=== PATIENT | female | born 1940 | race African-American/Black ===

== ENCOUNTER 2020-08-09 16:00 | Inpatient (IN) | payer OTHER ==
--- NOTE | 2020-08-09 16:20 | PDOC ---
History of Present Illness - General Chief Complaint: Shortness of Breath Stated Complaint: SENT BY URGENT CARE Time Seen by Provider: 08/09/20 17:00 History Source: Patient, Family - History of Present Illness Initial Comments: 08/09/20 17:12 80 y.o. F PMHx sarcoidosis, HTN and stroke 4 years ago with residual memory deficits presenting due to SOB. Hx was taken from patient and daughter. Patient states she has been having increased difficulty breathing for the past 2 weeks along with a cough productive of green sputum. Patient walks with a cane and get SOB after a few steps. Patient uses home O2 2L and home albuterol inhaler 3x daily. Patient denies fever, chills, chest pain, headache, N/V/D. PCP: Specialist: Marisa Mcneill [phone] PMHx: sarcoidosis, HTN, Stroke Meds: In Chart Allergies: NKDA Is this a multiple visit Asthma Patient?: No Timing/Duration: constant Past History - Medical History Allergies/Adverse Reactions: Allergies Allergy/AdvReac Type Severity Reaction Status Date / Time No Known Allergies Allergy Verified 08/09/20 16:12 Home Medications: Ambulatory Orders Albuterol 0.083% Nebulizer Selma [Ventolin 0.083%] 1 neb NEB QID 08/09/20 Atorvastatin Ca [Lipitor] 10 mg PO HS 08/09/20 Cetirizine HCl [Allergy Relief] 10 mg PO DAILY 08/09/20 Cyproheptadine [Periactin -] 4 mg PO DAILY 08/09/20 Gabapentin 200 mg PO DAILY 08/09/20 Guaifenesin/Dextromethorphan [Mucinex Dm ER 1,200-60 mg Tab] 1 each PO DAILY 08/09/20 Lactulose 10 gm PO 08/09/20 Valsartan 40 mg PO DAILY 08/09/20 COPD: No HTN: Yes (borderline) - Psycho-Social/Smoking History Smoking History: Never smoked Have you smoked in the past 12 months: No - Substance Abuse Hx (Audit-C & DAST Scrn) How often the patient has a drink containing alcohol: Never Score: In Men: 4 or > Positive; In Women: 3 or > Positive: 0 Screen Result (Pos requires Nsg. Audit-10AR): Negative In the last yr the pt used illegal drug/Rx for NonMed reason: No Score: Yes response is considered Positive: 0 Screen Result (Positive result requires Nsg. DAST-10): Negative Review of Systems - Review of Systems Able to Perform ROS?: Yes Is the patient limited Polish proficient: No Constitutional: No: Chills, Fever HEENTM: No: Blurred Vision, Double Vision Respiratory: Yes: Cough, SOB with Exertion, SOB at Rest, Productive cough (Green sputum) ABD/GI: No: Abdominal Distended, Constipated, Diarrhea, Nausea, Vomiting : No: Burning, Dysuria Musculoskeletal: No: Muscle Pain, Muscle Weakness Integumentary: No: Bruising, Dryness Neurological: Yes: Numbness (feet), Paresthesia (feet). No: Headache Hematologic/Lymphatic: No: Easy Bleeding, Easy Bruising *Physical Exam - Vital Signs Last Vital Signs Temp Pulse Resp BP Pulse Ox 97.7 F 94 H 24 H 140/70 92 L 08/09/20 16:03 08/09/20 16:03 08/09/20 16:03 08/09/20 16:03 08/09/20 16:03 - Physical Exam General Appearance: Yes: Nourished, Appropriately Dressed. No: Apparent Distress Respiratory/Chest: positive: Labored Respiration, Rhonchi, Other (Coarse BS). negative: Chest Tender, Lungs Clear, Normal Breath Sounds, Respiratory Distress, Accessory Muscle Use, Crackles, Rales, Stridor, Wheezing Cardiovascular: positive: Regular Rhythm, Regular Rate. negative: Edema, JVD, Murmur Gastrointestinal/Abdominal: positive: Normal Bowel Sounds, Flat, Soft. negative: Tender, Organomegaly, Distended, Rebound, Tenderness Musculoskeletal: positive: Normal Inspection. negative: CVA Tenderness Integumentary: positive: Normal Color, Dry, Warm Neurologic: positive: Fully Oriented, Alert, Normal Mood/Affect, Normal Response ED Treatment Course - LABORATORY CBC & Chemistry Diagram: 08/09/20 17:00 08/09/20 17:00 Medical Decision Making - Medical Decision Making 08/09/20 17:21 80 y.o. F PMHx sarcoidosis, HTN and stroke 4 years ago with residual memory deficits presenting due to SOB. DDx: COPD exacerbation, pneumonia Labs: WBC 14.5 CXR: Pending read EKG: NSR, QTc 435, rate 90 - Given Duonebs, 10mg Decadron IV, 500 mg Azithromycin, 1g Rocephin, on 4L O2 Dispo: Admission to med-surg 08/09/20 19:46 Discharge - Discharge Information Problems reviewed: Yes Clinical Impression/Diagnosis: Shortness of breath at rest Condition: Fair - Admission Yes - Follow up/Referral Referrals: ON STAFF,NOT [Primary Care Provider] - - Patient Discharge Instructions - Post Discharge Activity
[2020-08-09] MEDS ORDERED: ALBUTEROL SO4 2.5/IPRATROPIUM 0.5 INH SOL 3 ML VIAL.NEB. NEB ONE ×2 (16:53→17:03)
[2020-08-09] MEDS ORDERED: DEXAMETHASONE SOD PHOSPHATE 10 MG/1 ML VIAL IVPUSH ONE (16:53)
[2020-08-09] MEDS ORDERED: DEXAMETHASONE SOD PHOSPHATE 10 MG/1 ML VIAL ONE (17:03)
[2020-08-09 17:56] LABS: BASO % 1.1 % (0-2.0); EOS % 9.6 % (0-4.5); HEMATOCRIT 41.7 % (32.4-45.2); HEMOGLOBIN 13.3 GM/dL (10.7-15.3); LYMPH % 23.2 % (8-40); MCH 26.2 pg (25.7-33.7); MCHC 31.9 g/dl (32.0-36.0); MEAN PLT VOLUME 8.4 fl (7.5-11.1); MONO % 9.5 % (3.8-10.2); NEUT % 56.6 % (42.8-82.8); PLATELET COUNT 355 K/MM3 (134-434); RBC 5.08 M/mm3 (3.60-5.2); RDW 13.9 % (11.6-15.6); WHITE BLOOD COUNT 14.5 K/mm3 (4.0-10.0)
[2020-08-09 18:05] LABS: INR 1.03 (0.83-1.09); PROTHROMBIN TIME (PATIENT) 12.1 SEC (9.7-13.0)
[2020-08-09] MEDS ORDERED: AZITHROMYCIN IVPB 500 MG in DEXTROSE 5%-WATER - 250 ML IVPB ONE (18:11)
[2020-08-09 18:33] LABS: ALK PHOS 107 U/L (45-117); ANION GAP 7 MMOL/L (8-16); BILIRUBIN,TOTAL 0.2 mg/dL (0.2-1); BLOOD UREA NITROGEN 9.8 mg/dL (7-18); CALCIUM 9.2 mg/dL (8.5-10.1); CHLORIDE 105 mmol/L (98-107); CO2 28 mmol/L (21-32); CREATININE 0.8 mg/dL (0.55-1.3); GLUCOSE,RANDOM 84 mg/dL (74-106); POTASSIUM 4.3 mmol/L (3.5-5.1); SGOT/AST 15 U/L (15-37); SGPT/ALT 17 U/L (13-61); SODIUM 140 mmol/L (136-145); TOT PROT 7.8 g/dl (6.4-8.2)
[2020-08-09 18:49] LABS: N-TERMINAL BNP 67.7 pg/ml (5-450)
--- NOTE | 2020-08-09 19:02 | PDOC ---
Documentation entered by Sabrina Lombardo SCRIBE, acting as scribe for Lori Bennett MD. Lori Bennett MD: This documentation has been prepared by the Munira higgins Brenda, SCRIBE, under my direction and personally reviewed by me in its entirety. I confirm that the documentation accurately reflects all work, treatment, procedures, and medical decision making performed by me. Attending Attestation - Resident Resident Name: Tristen Sheikh - ED Attending Attestation I have performed the following: I have examined & evaluated the patient, The case was reviewed & discussed with the resident, I agree w/resident's findings & plan, Exceptions are as noted - HPI HPI: 08/09/20 17:53 The patient is an 80 year old female with a significant PMH of sarcoidosis, HTN and stroke (4 yrs ago with residual memory deficits) who presents to the ED for evaluation of 2 days of worsening shortness of breath. She is also endorsing a cough prouctive of green sputum. History was obtained via daughter. Daughter and patient are extremely poor historians. Allergies: NKA 08/09/20 18:52 - Physicial Exam PE: 08/09/20 18:53 Agree with resident exam. Patient is alert and tachyphneic but not in distress, speaking in complete sentences. Pulm: + diffuse rhonchi. CV: rrr no m/r./g - Medical Decision Making 08/09/20 18:58 Pt presents to the ED complaining of worsening shortness of breath and cough productive of green sputum. history of sarcoid. Given her hypoxia and tachypnea, will admit to medicine for treatment of pneumonia. Discharge - Discharge Information Problems reviewed: Yes Clinical Impression/Diagnosis: Shortness of breath at rest Condition: Fair - Follow up/Referral - Patient Discharge Instructions - Post Discharge Activity
[2020-08-09] MEDS ORDERED: CEFTRIAXONE 1,000 MG in DEXTROSE 5%-WATER - 50 ML IVPB ONE (19:20)
--- NOTE | 2020-08-09 19:33 | HP ---
CHIEF COMPLAINT: shortness of breath and cough PCP: HISTORY OF PRESENT ILLNESS: Ms. Judd is an 80F w a pmhx of sarcoidosis, htn, and previous cva (4 years ago)brought into the ED by her daughter for a 2 day complaint of shortness of breath admitted for treatment of pneumonia. The patient is accompanied by her daughter. The patient was noted to have had increased shortness of breath and productive cough since Thursday. The patient notes she has had similar symptoms in the past. The patient explains she has not seen a physician for her sarcoidosis since DEC. She lives alone at home with her daughter visiting a few times a week and her daughter notes that the patient sometimes forgets to take her medications. The patient had a severe cough an yellow productive sputum at the time. The daughter notes the sputum has been getting darker in color. The patient denies chest pain, dyspnea, fever, chills, nausea, vomiting, change in bowel habits, or abdominal pain. Recent Travel: denies PAST MEDICAL HISTORY: as above PAST SURGICAL HISTORY: as above Social History: Smoking: denies Alcohol: denies Drugs: denies Allergies No Known Allergies Allergy (Verified 08/09/20 16:12) HOME MEDICATIONS: Home Medications Medication Instructions Recorded Albuterol 0.083% Nebulizer Selma 1 neb NEB QID 08/09/20 [Ventolin 0.083%] Atorvastatin Ca [Lipitor] 10 mg PO HS 08/09/20 Cetirizine HCl [Allergy Relief] 10 mg PO DAILY 08/09/20 Cyproheptadine [Periactin -] 4 mg PO DAILY 08/09/20 Gabapentin 200 mg PO DAILY 08/09/20 Guaifenesin/Dextromethorphan 1 each PO DAILY 08/09/20 [Mucinex Dm ER 1,200-60 mg Tab] Lactulose 10 gm PO 08/09/20 Valsartan 40 mg PO DAILY 08/09/20 REVIEW OF SYSTEMS CONSTITUTIONAL: Absent: fever, chills, diaphoresis, generalized weakness, malaise, loss of appetite, weight change HEENT: Absent: rhinorrhea, nasal congestion, throat pain, throat swelling, difficulty swallowing, mouth swelling, ear pain, eye pain, visual changes CARDIOVASCULAR: Absent: chest pain, syncope, palpitations, irregular heart rate, lightheadedness, peripheral edema RESPIRATORY: cough, shortness of breath, Absent: dyspnea with exertion, GASTROINTESTINAL: Absent: abdominal pain, abdominal distension, nausea, vomiting, diarrhea, constipation, melena, hematochezia GENITOURINARY: Absent: dysuria, frequency, urgency, hesitancy, hematuria, flank pain, genital pain PHYSICAL EXAMINATION Vital Signs - 24 hr 08/09/20 08/09/20 16:03 18:01 Temperature 97.7 F 97.9 F Pulse Rate 94 H Pulse Rate [ 101 H Apical] Respiratory 24 H 19 Rate Blood Pressure 140/70 Blood Pressure 138/72 [Right Arm] O2 Sat by Pulse 92 L 96 Oximetry (%) GENERAL: Awake, alert, and fully oriented, in no acute distress. HEAD: Normal with no signs of trauma. LUNGS: POOR INSPIRATORY EFFORT, COUGH, RALES HEARD BILATERAL BASES HEART: Regular rate and rhythm, normal S1 and S2 without murmur, rub or gallop. ABDOMEN: Soft, nontender, not distended, normoactive bowel sounds, no guarding, no rebound, no masses. No hepatomegaly or splenomegaly. LOWER EXTREMITIES: 2+ pulses, warm, well-perfused. No calf tenderness. No peripheral edema. Laboratory Results - last 24 hr 08/09/20 08/09/20 08/09/20 17:00 17:00 17:00 WBC 14.5 H RBC 5.08 Hgb 13.3 Hct 41.7 MCV 82.0 MCH 26.2 MCHC 31.9 L RDW 13.9 Plt Count 355 MPV 8.4 Absolute Neuts (auto) 8.2 H Neutrophils % 56.6 Lymphocytes % 23.2 Monocytes % 9.5 Eosinophils % 9.6 H Basophils % 1.1 Nucleated RBC % 0 PT with INR 12.10 INR 1.03 Sodium 140 Potassium 4.3 Chloride 105 Carbon Dioxide 28 Anion Gap 7 L BUN 9.8 Creatinine 0.8 Est GFR (CKD-EPI)AfAm 80.14 Est GFR (CKD-EPI)NonAf 69.14 Random Glucose 84 Calcium 9.2 Total Bilirubin 0.2 AST 15 ALT 17 Alkaline Phosphatase 107 Creatine Kinase 77 Troponin I < 0.02 B-Natriuretic Peptide 67.7 Total Protein 7.8 Albumin 3.0 L ASSESSMENT/PLAN: Ms. Judd is an 80F w a pmhx of sarcoidosis, htn, and previous cva (4 years ago)brought into the ED by her daughter for a 2 day complaint of shortness of breath admitted for treatment of pneumonia. #community acquired pneumonia - elevated WBC - azythromycin 500 PO Daily - ceftriaxone 1g daily - 2L nasal canula - sputum cultures - blood cultures - consult pulm - consult ID #sarcoidosis - continue home dose of prednisone - assess A1C for possible insulin resistance - pulm consult - Dr. Narvaez #HTN - Continue Home losartan - monitor BP #HLD - Home statin dose #FEN - Sodium controlled diet - monitor lytes #DVT ppx - lovenox sq #dispo - admit to medsurg - PT consult - social work will need to be consulted before discharge to evaluate home living situation #advanced directive - full code Family Medical History Family History: As Documented Visit type - Medication Review Med list reviewed for High Risk Meds patients 65 and older: Yes - Emergency Visit Emergency Visit: Yes ED Registration Date: 08/09/20 Care time: The patient presented to the Emergency Department on the above date and was hospitalized for further evaluation of their emergent condition. - New Patient This patient is new to me today: Yes Date on this admission: 08/10/20 - Critical Care Critical Care patient: No ATTENDING PHYSICIAN STATEMENT I saw and evaluated the patient. I reviewed the resident's note and discussed the case with the resident. I agree with the resident's findings and plan as documented. SUBJECTIVE: OBJECTIVE: ASSESSMENT AND PLAN:
[2020-08-09] MEDS ORDERED: CEFTRIAXONE 1 GM/50 ML BAG ONE (20:03)
--- NOTE | 2020-08-09 22:02 | PN ---
Teaching Attending Note Name of Resident: Augustine Oswald ATTENDING PHYSICIAN STATEMENT I saw and evaluated the patient. I reviewed the resident's note and discussed the case with the resident. I agree with the resident's findings and plan as documented. SUBJECTIVE: 80 y/o F with PMHx of HTN, CVA, Sarcoidosis p/w progressive worsening of dyspnea and change in sputum purulence admitted with CAP &Advanced Sarcoidosis. OBJECTIVE: VS: Afeb HR 101 BP 138/72 97% on 2L NC Leukocytosis 14.5 H/H WNL Na 140 k 4.3 BUN /Creat 9.8/0.8 ASSESSMENT AND PLAN: CAP Sarcoidosis Obtain Pulm records from o/p for any recent CT scans C/W Home oxygen 2L NC Ceftriaxone and azithromycin Albuterol q 4 PRN dyspnea COVID sent Received Decadron 10 mg IVP in ED Reconcile Prednisone 20 mg in am BCx, Sputum Cx Tylenol 650 mg q 6 hr PRN fever Guaifenesin PRN cough CVA HTN C/W ASA 81 mg daily C/W Valsartan 40 mg daily Supp care: DVT Px: HSQ 5K BID Diet resume GI px not indicated
[2020-08-09 22:23] VITALS: BMI 22.1
--- OUTSIDE RECORDS SUMMARY | 2020-08-10 04:36 | XMS ---
:1940 Demographics Address [id number] [place] [address] Preferred Language en Marital Status Unknown Buddhism Affiliation BA Race BL Ethnic Group Unknown Author Organization [facility] Support Name Relationship Address Phone RE Unavailable Unavailable Unavailable KOMAL DELACRUZ DAUGHTER [address] [place] [address] Re-disclosure Warning The records that you are about to access may contain information from federally- assisted alcohol or drug abuse programs. If such information is present, then the following federally mandated warning applies: This information has been disclosed to you from records protected by federal confidentiality rules (42 CFR part 2). The federal rules prohibit you from making any further disclosure of this information unless further disclosure is expressly permitted by the written consent of the person to whom it pertains or as otherwise permitted by 42 CFR part 2. A general authorization for the release of medical or other information is NOT sufficient for this purpose. The Federal rules restrict any use of the information to criminally investigate or prosecute any alcohol or drug abuse patient.The records that you are about to access may contain highly sensitive health information, the redisclosure of which is protected by Article 27-F of the [facility] Public Health law. If you continue you may haveaccess to information: Regarding HIV / AIDS; Provided by facilities licensed or operated by the [facility] Office of Mental Health; or Provided by the [facility] Office for People With Developmental Disabilities. If such information is present, then the following [facility] mandated warning applies: This information has been disclosed to you from confidential records which are protected by state law. State law prohibits you from making any further disclosure of this information without the specific written consent of the person to whom it pertains, or as otherwise permitted by law. Any unauthorized further disclosure in violation of state law may result in a fine or shelter sentence or both. A general authorization for the release of medical or other information is NOT sufficient authorization for further disclosure. Allergies and Adverse Reactions Type Description Substance Reaction Status Data Source(s ) No Known No Known Allergies No known eCW3 ( [place] Allergies allergies [facility] (situation) Care) Encounters Encounter Providers Location Date Indications Data Source(s ) New A31 [facility]-Initial [place] [facility] 12/28/2018 eC W3 ([facility] Assessment [facility] A28 12:00:00 AM [facility] EST - Care) 12/28/2018 12:00:00 AM EST Medications Medication Brand Start Product Dose Route Administrative Pharmacy [facility] Indications Reaction Description Data Name Date Form Instructions Instructions Source(s) Aspirin 81 Aspir- 1.0 active Aspir-81 8 1 eCW3 MG Delayed 81 81 {tabl MG ([place] Release MG et} [facility] Oral Tablet Health Aspir-81 81 Care) MG Guaifenesin Guaife 1.0 active Guaifenes in eCW3 400 MG Oral nesin {tabl 400 MG ([place]ud son Tablet 400 MG et_as [facility] _need Health ed} Care) Losartan Losart 1.0 active Losartan eCW 3 Potassium an {tabl Potassium 25 ( [place] 25 MG Oral Potass et} MG [facility] Tablet ium 25 Health MG Care) atorvastati Atorva 1.0 active Atorvasta tin eCW3 n 10 MG statin {tabl Calcium 10 (Hu dson Oral Tablet Calciu et} MG [facility] Atorvastati m 10 Health n Calcium MG Care) 10 MG Metformin METFOR 1.0 active METFORMIN e CW3 hydrochlori MIN {tabl HCL 500 MG ( [place] de 500 MG HCL et_wi [facility] Oral Tablet 500 MG th_a_ Healt h METFORMIN meal} Care) HCL 500 MG Insurance Providers Payer name Policy type Policy ID Covered Covered libertarian's Policy P ellen / Coverage libertarian ID relationship to [facility] ormation type [facility] [id number] MEDICARE Problems, Conditions, and Diagnoses Code Display Name Description Problem Type Effective Dates Data Source(s) F32.9 Mild depression Mild depression Problem 12/08/2018 eCW3 ([facility] 12:00:00 AM EST [facility] Care) F43.10 Post-traumatic Post-traumatic Problem 12/08/2018 eCW3 ( [place] stress disorder stress disorder, 12:00:00 AM [facility] unspecified Care) F41.1 Anxiety Anxiety Problem 12/08/2018 eCW3 ([place] 12:00:00 AM EST [facility] Care) Social History Code Duration Value Status Description Data Source(s ) Smoking 12/28/2018 12:00:00 Never Smoker completed Never Smoker e CW3 ([facility]) Never Smoker completed Never Smoker eCW3 ([facility])
[2020-08-10] MEDS: ALBUTEROL SO4 HFA INHALER IH PRN ×2 (05:54→22:21)
[2020-08-10 07:39] LABS: BASO % 0.1 % (0-2.0); HEMATOCRIT 37.8 % (32.4-45.2); HEMOGLOBIN 12.2 GM/dL (10.7-15.3); MCH 26.3 pg (25.7-33.7); MCHC 32.3 g/dl (32.0-36.0); MEAN CELL VOLUME 81.5 fl (80-96); MEAN PLT VOLUME 7.9 fl (7.5-11.1); MONO % 5.5 % (3.8-10.2); NEUT % 75.4 % (42.8-82.8); PLATELET COUNT 296 K/MM3 (134-434); RBC 4.64 M/mm3 (3.60-5.2)
[2020-08-10 08:07] LABS: ALBUMIN 2.6 g/dl (3.4-5.0); BILIRUBIN,TOTAL 0.3 mg/dL (0.2-1); BLOOD UREA NITROGEN 12.3 mg/dL (7-18); CALCIUM 8.8 mg/dL (8.5-10.1); CREATININE 0.7 mg/dL (0.55-1.3); MAGNESIUM 2.3 mg/dL (1.8-2.4); PHOSPHOROUS 4.3 mg/dL (2.5-4.9); POTASSIUM 4.3 mmol/L (3.5-5.1)
[2020-08-10] MEDS ORDERED: predniSONE 20 MG TABLET (UD) PO SCH (10:00)
[2020-08-10] MEDS ORDERED: AZITHROMYCIN IVPB 500 MG/250 ML BAG IVPB ONE (10:00)
[2020-08-10] MEDS ORDERED: PT OWN MED DRAWER 7, Y5N ONE ×3 (10:34→21:26)
[2020-08-10] MEDS ORDERED: cefTRIAXone SODIUM 1 GM VIAL ONE (10:35)
[2020-08-10] MEDS ORDERED: DEXTROSE 5%-WATER - 50 ML IVPB ONE (10:35)
--- NOTE | 2020-08-10 10:40 | EKG ---
Test Reason : Blood Pressure : / mmHG Vent. Rate : 090 BPM Atrial Rate : 090 BPM P-R Int : 132 ms QRS Dur : 078 ms QT Int : 356 ms P-R-T Axes : 066 049 066 degrees QTc Int : 435 ms POOR DATA QUALITY, INTERPRETATION MAY BE ADVERSELY AFFECTED NORMAL SINUS RHYTHM NORMAL ECG Confirmed by JANNETH GOMES MD ([id number]) on 08/10/2020 10:39:37 AM Referred By: Confirmed By:JANNETH GOMES MD
[2020-08-10] MEDS: AZITHROMYCIN IVPB 250 MG in DEXTROSE 5%-WATER - 250 ML IVPB SCH (10:41)
[2020-08-10] MEDS: ENOXAPARIN NA (PORCINE) 40 MG/0.4 ML DISP.SYRIN SQ SCH (10:42)
[2020-08-10] MEDS: VALSARTAN 40 MG TABLET PO SCH (10:42)
[2020-08-10] MEDS: GABAPENTIN 100 MG CAPSULE PO SCH (10:42)
[2020-08-10] MEDS: LORATADINE 10 MG TABLET PO SCH (10:42)
[2020-08-10] MEDS: ASPIRIN 81 MG CHEWABLE TABLETS PO SCH (10:42)
[2020-08-10] MEDS: CEFTRIAXONE 1 GM in DEXTROSE 5%-WATER - 50 ML IVPB SCH (10:43)
[2020-08-10] MEDS ORDERED: POLYETHYLENE GLYCOL 3350 119 GM BTL PO SCH (10:45)
[2020-08-10] MEDS: LACTULOSE 20 GM/30 ML UDC (FOR ORAL USE ONLY) PO SCH (11:48)
[2020-08-10] MEDS: predniSONE 20 MG TABLET (UD) PO SCH (11:48)
[2020-08-10] MEDS: MEMANTINE HCL 10 MG TABLET (FP) PO SCH (11:48)
--- NOTE | 2020-08-10 12:54 | PN ---
Teaching Attending Note Name of Resident: Robert Patel ATTENDING PHYSICIAN STATEMENT I saw and evaluated the patient. I reviewed the resident's note and discussed the case with the resident. I agree with the resident's findings and plan as documented. SUBJECTIVE: pt seen and examined OBJECTIVE: Last Vital Signs Temp Pulse Resp BP Pulse Ox 97.7 F 70 20 120/64 96 08/10/20 03:54 08/10/20 03:54 08/10/20 03:54 08/10/20 03:54 08/10/20 03:54 GENERAL: Awake, alert, and fully oriented, in no acute distress. HEAD: Normal with no signs of trauma. EYES: Pupils equal, round and reactive to light, sclera anicteric, conjunctiva clear. LUNGS: Breath sounds equal, clear to auscultation bilaterally. No wheezes, and no crackles posterior, anterior inspiratory rales. No accessory muscle use. HEART: Regular rate and rhythm, normal S1 and S2 ABDOMEN: Soft, nontender, not distended LOWER EXTREMITIES: 2+ pulses, warm, well-perfused. No calf tenderness. No peripheral edema. NEUROLOGICAL: Cranial nerves II-XII intact. Normal speech. CBCD WBC 8.0 K/mm3 (4.0-10.0) 08/10/20 07:15 RBC 4.64 M/mm3 (3.60-5.2) 08/10/20 07:15 Hgb 12.2 GM/dL (10.7-15.3) 08/10/20 07:15 Hct 37.8 % (32.4-45.2) 08/10/20 07:15 MCV 81.5 fl (80-96) 08/10/20 07:15 MCHC 32.3 g/dl (32.0-36.0) 08/10/20 07:15 RDW 14.0 % (11.6-15.6) 08/10/20 07:15 Plt Count 296 K/MM3 (134-434) 08/10/20 07:15 MPV 7.9 fl (7.5-11.1) 08/10/20 07:15 CMP Sodium 139 mmol/L (136-145) 08/10/20 07:15 Potassium 4.3 mmol/L (3.5-5.1) 08/10/20 07:15 Chloride 105 mmol/L (98-107) 08/10/20 07:15 Carbon Dioxide 28 mmol/L (21-32) 08/10/20 07:15 Anion Gap 6 MMOL/L (8-16) L 08/10/20 07:15 BUN 12.3 mg/dL (7-18) 08/10/20 07:15 Creatinine 0.7 mg/dL (0.55-1.3) 08/10/20 07:15 Random Glucose 139 mg/dL (74-106) H 08/10/20 07:15 Calcium 8.8 mg/dL (8.5-10.1) 08/10/20 07:15 Total Bilirubin 0.3 mg/dL (0.2-1) 08/10/20 07:15 AST 9 U/L (15-37) L 08/10/20 07:15 ALT 13 U/L (13-61) 08/10/20 07:15 Alkaline Phosphatase 85 U/L (45-117) 08/10/20 07:15 Total Protein 7.0 g/dl (6.4-8.2) 08/10/20 07:15 Albumin 2.6 g/dl (3.4-5.0) L 08/10/20 07:15 CARDIAC ENZYMES Creatine Kinase 77 U/L (26-192) 08/09/20 17:00 Troponin I < 0.02 ng/ml (0.00-0.05) 08/09/20 17:00 Active Medications Albuterol Sulfate (Ventolin Hfa Inhaler -) 2 puff IH Q4H PRN PRN Reason: SHORT OF BREATH/WHEEZING Last Admin: 08/10/20 05:54 Dose: 2 puff Documented by: Aspirin (Asa -) 81 mg PO DAILY [facility] Last Admin: 08/10/20 10:42 Dose: 81 mg Documented by: Atorvastatin Calcium (Lipitor -) 10 mg PO HS [facility] Cyproheptadine HCl (Periactin -) 4 mg PO DAILY [facility] Enoxaparin Sodium (Lovenox -) 40 mg SQ DAILY [facility] Last Admin: 08/10/20 10:42 Dose: 40 mg Documented by: Gabapentin (Neurontin -) 200 mg PO DAILY [facility] Last Admin: 08/10/20 10:42 Dose: 200 mg Documented by: Ceftriaxone Sodium 1 gm/ (Dextrose) 50 mls @ 100 mls/hr IVPB DAILY [facility] Last Admin: 08/10/20 10:43 Dose: 100 mls/hr Documented by: Azithromycin 250 mg/ Dextrose 250 mls @ 250 mls/hr IVPB DAILY [facility] Last Admin: 08/10/20 10:41 Dose: 250 mls/hr Documented by: Lactulose (Cephulac (Oral Use)) 10 gm PO DAILY [facility] Last Admin: 08/10/20 11:48 Dose: 10 gm Documented by: Loratadine (Claritin -) 10 mg PO DAILY [facility] Last Admin: 08/10/20 10:42 Dose: 10 mg Documented by: Memantine (Namenda -) 20 mg PO DAILY [facility] Last Admin: 08/10/20 11:48 Dose: 20 mg Documented by: Prednisone (Deltasone -) 20 mg PO DAILY [facility] Last Admin: 08/10/20 11:48 Dose: 20 mg Documented by: Valsartan (Diovan -) 40 mg PO DAILY [facility] Last Admin: 08/10/20 10:42 Dose: 40 mg Documented by: ASSESSMENT AND PLAN: 80F w mhx of sarcoidosis (non compliant with meds), htn, and previous CVA(4 years ago) brought into the ED by her daughter for a 2 day complaint of shortness of breath and productive cough for few days. 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 - c/w home dose of prednisone - c/w Ceftriaxone and Azithro - PT - ID consult requested - pulmonary consult requested - case discussed with consult ILD HTN h/o CVA DVT prophylaxis
--- NOTE | 2020-08-10 13:29 | CON.ID ---
Consult Consult Specialty:: infectious disease Referred by:: hospitalist Reason for Consultation:: pneumonia - History of Present Illness Chief Complaint: cough, sob History of Present Illness: 80 yo female lives [place] the [place], history of sarcoid- brought to ED by daughter with cough yellow sputum produciton and sob- no fevers per charts symptoms for last several days no diarrhea no dysuria no f/u since December denies travel denies sick contacts exposure to anyone who has travelled or had covid home oxygen use intermittently on outpt steroids - History Source History Provided By: Patient, Medical Record Limitations to Obtaining History: Clinical Condition - Past Medical History 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 Cardio/Vascular: Yes: HTN Pulmonary: Yes: Other (sarcoid) - Alcohol/Substance Use Hx Alcohol Use: No - Smoking History Smoking history: Never smoked Have you smoked in the past 12 months: No - Social History Usual Living Arrangement: Alone ADL: Family Assistance History of Recent Travel: No Home Medications - Allergies Allergies/Adverse Reactions: Allergies Allergy/AdvReac Type Severity Reaction Status Date / Time No Known Allergies Allergy Verified 08/09/20 16:12 - Home Medications Home Medications: Ambulatory Orders Albuterol 0.083% Nebulizer [place] [Ventolin 0.083% Nebulizer Soln -] 1 neb NEB QID 08/09/20 Aspirin 81 mg PO DAILY 08/09/20 Atorvastatin Ca [Lipitor] 10 mg PO HS 08/09/20 Cetirizine HCl [Allergy Relief] 10 mg PO DAILY 08/09/20 Cyproheptadine [Periactin -] 4 mg PO DAILY 08/09/20 Gabapentin 200 mg PO DAILY 08/09/20 Guaifenesin/Dextromethorphan [Mucinex Dm ER 1,200-60 mg Tab] 1 each PO DAILY 08/09/20 Lactulose 10 gm PO DAILY 08/09/20 Memantine HCl [Namenda -] 20 mg PO DAILY 08/09/20 Prednisone 20 mg PO DAILY 08/09/20 Valsartan 40 mg PO DAILY 08/09/20 Levofloxacin [Levaquin] 500 mg PO DAILY #5 tablet 08/12/20 Salmeterol/Fluticasone [Advair 100Mcg/50Mcg -] 1 puff IH BID #1 inhaler 08/12/20 Family Medical History Family History: Unable to Obtain, Denies Review of Systems - Review of Systems Constitutional: denies: No Symptoms, Chills, Diaphoresis, Fever Eyes: reports: No Symptoms HENT: reports: No Symptoms Neck: reports: No Symptoms Cardiovascular: reports: No Symptoms. denies: Chest Pain Respiratory: reports: Cough, SOB Gastrointestinal: reports: No Symptoms Genitourinary: reports: No Symptoms, Testicular Pain Musculoskeletal: reports: No Symptoms Integumentary: reports: No Symptoms Physical Exam Vital Signs: Vital Signs Temperature 97.7 F 08/10/20 03:54 Pulse Rate 70 08/10/20 03:54 Respiratory Rate 20 08/10/20 03:54 Blood Pressure 120/64 08/10/20 03:54 O2 Sat by Pulse Oximetry (%) 96 08/10/20 03:54 Constitutional: Yes: Thin Eyes: Yes: Conjunctiva Clear HENT: Yes: Atraumatic, Normocephalic Neck: Yes: Supple, Trachea Midline Cardiovascular: Yes: Regular Rate and Rhythm Respiratory: Yes: CTA Bilaterally, Diminished (at bases) Gastrointestinal: Yes: Normal Bowel Sounds, Soft. 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
--- NOTE | 2020-08-10 13:36 | PN ---
Physical Exam: SUBJECTIVE: Patient seen and examined OBJECTIVE: Vital Signs Period Temp Pulse Resp BP Sys/Rodríguez Pulse Ox Last 24 Hr 97.7 F-98.2 F 70-101 18-24 120-140/64-75 92-99 GENERAL: Awake, alert, and fully oriented, in no acute distress. HEAD: Normal with no signs of trauma. EYES: Pupils equal, round and reactive to light, sclera anicteric, conjunctiva clear. LUNGS: Breath sounds equal, clear to auscultation bilaterally. No wheezes, and no crackles posterior, anterior inspiratory rales. No accessory muscle use. HEART: Regular rate and rhythm, normal S1 and S2 ABDOMEN: Soft, nontender, not distended LOWER EXTREMITIES: 2+ pulses, warm, well-perfused. No calf tenderness. No peripheral edema. NEUROLOGICAL: Cranial nerves II-XII intact. Normal speech. Laboratory Results - last 24 hr 08/09/20 08/09/20 08/09/20 17:00 17:00 17:00 WBC 14.5 H RBC 5.08 Hgb 13.3 Hct 41.7 MCV 82.0 MCH 26.2 MCHC 31.9 L RDW 13.9 Plt Count 355 MPV 8.4 Absolute Neuts (auto) 8.2 H Neutrophils % 56.6 Lymphocytes % 23.2 Monocytes % 9.5 Eosinophils % 9.6 H Basophils % 1.1 Nucleated RBC % 0 PT with INR 12.10 INR 1.03 D-Dimer Sodium 140 Potassium 4.3 Chloride 105 Carbon Dioxide 28 Anion Gap 7 L BUN 9.8 Creatinine 0.8 Est GFR (CKD-EPI)AfAm 80.14 Est GFR (CKD-EPI)NonAf 69.14 Random Glucose 84 Calcium 9.2 Phosphorus Magnesium Ferritin Total Bilirubin 0.2 AST 15 ALT 17 Alkaline Phosphatase 107 LD Total Creatine Kinase 77 Troponin I < 0.02 C-Reactive Protein B-Natriuretic Peptide 67.7 Total Protein 7.8 Albumin 3.0 L 08/10/20 08/10/20 08/10/20 07:15 07:15 08:50 WBC 8.0 RBC 4.64 Hgb 12.2 Hct 37.8 MCV 81.5 MCH 26.3 MCHC 32.3 RDW 14.0 Plt Count 296 MPV 7.9 Absolute Neuts (auto) 6.1 Neutrophils % 75.4 D Lymphocytes % 19.0 Monocytes % 5.5 Eosinophils % 0.0 D Basophils % 0.1 Nucleated RBC % 0 PT with INR INR D-Dimer 2253 H Sodium 139 Potassium 4.3 Chloride 105 Carbon Dioxide 28 Anion Gap 6 L BUN 12.3 Creatinine 0.7 Est GFR (CKD-EPI)AfAm 94.18 Est GFR (CKD-EPI)NonAf 81.26 Random Glucose 139 H Calcium 8.8 Phosphorus 4.3 Magnesium 2.3 Ferritin 101.7 Total Bilirubin 0.3 AST 9 L ALT 13 Alkaline Phosphatase 85 LD Total 242 Creatine Kinase Troponin I C-Reactive Protein 5.3 H B-Natriuretic Peptide Total Protein 7.0 Albumin 2.6 L Active Medications Generic Name Dose Route Start Last Admin Trade Name Freq PRN Reason Stop Dose Admin Albuterol Sulfate 2 puff 08/09/20 23:35 08/10/20 05:54 Ventolin Hfa Inhaler - IH 2 puff Q4H PRN Administration SHORT OF BREATH/WHEEZING Aspirin 81 mg 08/10/20 10:00 08/10/20 10:42 Asa - PO 81 mg DAILY NEVA Administration Atorvastatin Calcium 10 mg 08/10/20 22:00 Lipitor - PO HS NEVA Cyproheptadine HCl 4 mg 08/11/20 10:00 Periactin - PO DAILY NEVA Enoxaparin Sodium 40 mg 08/10/20 10:00 08/10/20 10:42 Lovenox - SQ 40 mg DAILY NEVA Administration Gabapentin 200 mg 08/10/20 10:00 08/10/20 10:42 Neurontin - PO 200 mg DAILY NEVA Administration Ceftriaxone Sodium 1 gm/ 50 mls @ 100 mls/hr 08/10/20 10:00 08/10/20 10:43 Dextrose IVPB 100 mls/hr DAILY NEVA Administration Azithromycin 250 mg/ Dextrose 250 mls @ 250 mls/hr 08/10/20 10:00 08/10/20 10:41 IVPB 250 mls/hr DAILY NEVA Administration Lactulose 10 gm 08/10/20 11:00 08/10/20 11:48 Cephulac (Oral Use) PO 10 gm DAILY NEVA Administration Loratadine 10 mg 08/10/20 10:00 08/10/20 10:42 Claritin - PO 10 mg DAILY NEVA Administration Memantine 20 mg 08/10/20 11:00 08/10/20 11:48 Namenda - PO 20 mg DAILY NEVA Administration Prednisone 20 mg 08/10/20 11:00 08/10/20 11:48 Deltasone - PO 20 mg DAILY NEVA Administration Valsartan 40 mg 08/10/20 10:00 08/10/20 10:42 Diovan - PO 40 mg DAILY NEVA Administration ASSESSMENT/PLAN: 80 year old female with PMHx of sarcoidosis, HTN, previous CVA brought in by the ED by daughter for 2 day complaint of SOB and productive cough with yellow/dark sputum for a few days. #Sepsis secondary to pneumonia (likely community acquired) -resolved (WBC 14.5, tachypneic with source) -CXR with diffuse pulmonary fibrosis, bilateral reticular opacities consistent with sarcoidosis, patchy opacity over mid L hemithorax (possible superimposed PNA) -on rocephin and azithromycin -inflammatory markers increased (D-dimer >2000, CRP 5.3) -COVID pending -ID and pulm consulted #Hx of sarcoidosis -continued home prednisone 20mg daily -not compliant on meds, educated on importance -pulm consulted; chest CT ordered -on home O2 but not using constantly -96% on 2L NC, attempt wean off #Hx of HTN -continued home valsartan #Hx of CVA -continue home ASA and lipitor PPx -Lovenox 40 mg SQ daily FEN -No standing fluids -Monitor electrolytes -Sodium controlled diet Dispo Admit to med surg. On rocephin, azithro for possible PNA. Resumed home steroids for sarcoid. ATTENDING PHYSICIAN STATEMENT I saw and evaluated the patient. I reviewed the resident's note and discussed the case with the resident. I agree with the resident's findings and plan as documented. SUBJECTIVE: OBJECTIVE: ASSESSMENT AND PLAN:
--- NOTE | 2020-08-10 14:32 | PN ---
Progress Note (short form) - Note Progress Note: PULMONARY CONSULTATION DICTATED 08/10/20 IMP ACUTE ON CHRONIC HYPOXIC RESPIRATORY FAILURE ADVANCED PULMONARY SARCOID R/O PNEUMONIA/BRONCHITIS HTN H/O CVA HLD PLAN SUPPLEMENTAL O2 INHALED BRONCHODILATORS ABX PER ID CHEST CT COVID SEROLOGY PENDING DR BANERJEE Problem List - Problems (1) Sarcoid Code(s): D86.9 - SARCOIDOSIS, UNSPECIFIED (2) Shortness of breath at rest Code(s): R06.02 - SHORTNESS OF BREATH (3) Chronic hypoxemic respiratory failure Code(s): J96.11 - CHRONIC RESPIRATORY FAILURE WITH HYPOXIA (4) HTN (hypertension) Code(s): I10 - ESSENTIAL (PRIMARY) HYPERTENSION
--- NOTE | 2020-08-10 16:35 | CONS ---
DATE OF CONSULTATION: 08/10/2020 PULMONARY CONSULTATION REFERRING PHYSICIAN: Rob Rajan MD. HISTORY OF PRESENT ILLNESS: History is obtained from medical records. The patient is a poor historian. The patient is an 80-year-old female with past medical history of sarcoid unknown when diagnosed, hypertension, history of CVA 4 years ago, currently on home O2, admitted to [facility] on August 09 by a daughter secondary to 2-day history of shortness of breath. Apparently the patient was noticed to have increased shortness of breath productive of cough since 2 days prior to admission. She also had apparently similar symptoms in the past. Apparently the patient has not seen her physician for sarcoid since December. She apparently lives alone with her daughter visiting a few times a week. Patient apparently has been on prednisone 20 mg daily but is noncompliant and sometimes forgets to take her medication. Patient is also on home oxygen therapy. The patient has had severe cough, yellow sputum at the time. The patient apparently complained to the daughter sputum has been getting darker in color. There is no fever, chills, nausea, vomiting, or diaphoresis. On admission, she had a chest x-ray performed which revealed likely chronic interstitial lung disease, possible superimposed pneumonia in the left mid lung field. PAST MEDICAL HISTORY: Again includes sarcoidosis, hypertension. CURRENT MEDICATIONS: Include: 1. Prednisone 20 daily. 2. Lactulose. 3. Diovan. 4. Zithromax . 5. Ceftriaxone. 6. Lovenox. 7. Neurontin. 8. Namenda. 9. Albuterol inhaler. 10. Periactin. 11. Lipitor. 12. Aspirin. 13. Claritin. REVIEW OF SYSTEMS: Difficult to obtain secondary to the patient, seems very forgetful to provide adequate history. PHYSICAL EXAMINATION: General: The patient is an elderly female awake, alert, confused but in no acute distress. She is afebrile. Vital Signs: Blood pressure 115/64, respiratory rate 20, O2 saturation is 97% on 2 L nasal cannula. HEENT: Normocephalic, atraumatic. Neck: Supple. Heart: Regular S1, S2. Chest: Bilateral crackles. Abdomen: Soft, bowel sounds positive. Extremities: No cyanosis, edema. LABORATORY: D-dimer is 2253. Chemistry: ferritin is 107, CRP is 5.3, COVID is pending. Chest x-ray as noted earlier. IMPRESSION: 1. 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 2. Rule out possibility of superimposed pneumonia. 3. infection, Pneumocystis pneumonia secondary to chronic steroid use. 4. Hypertension. 5. History of cerebrovascular accident. 6. Hyperlipidemia. PLAN: Supplemental O2, inhaled bronchodilators, continue antibiotics, chest CT, COVID serology is pending. EMILEE BANERJEE M.D. [id number]
[2020-08-10] MEDS: FLUTICASONE/SALMETEROL 100 MCG/50 MCG DISKUS IH SCH (22:14)
[2020-08-10] MEDS: ATORVASTATIN CA 10 MG TABLET (FP) PO SCH (22:15)
[2020-08-11] MEDS: ALBUTEROL SO4 HFA INHALER IH PRN ×2 (02:56→09:28)
[2020-08-11 08:14] LABS: BASO % 0.5 % (0-2.0); EOS % 6.4 % (0-4.5); LYMPH % 16.4 % (8-40); MCH 25.5 pg (25.7-33.7); MCHC 31.5 g/dl (32.0-36.0); MEAN CELL VOLUME 80.9 fl (80-96); MONO % 11.3 % (3.8-10.2); NEUT % 65.4 % (42.8-82.8); PLATELET COUNT 325 K/MM3 (134-434); RDW 13.6 % (11.6-15.6); WHITE BLOOD COUNT 12.1 K/mm3 (4.0-10.0)
[2020-08-11 08:52] LABS: BLOOD UREA NITROGEN 15.6 mg/dL (7-18); CALCIUM 8.8 mg/dL (8.5-10.1); CREATININE 0.6 mg/dL (0.55-1.3); PHOSPHOROUS 3.8 mg/dL (2.5-4.9); POTASSIUM 4.1 mmol/L (3.5-5.1)
[2020-08-11] MEDS ORDERED: DEXTROSE 5%-WATER - 50 ML IVPB ONE (09:04)
[2020-08-11] MEDS ORDERED: cefTRIAXone SODIUM 1 GM VIAL ONE (09:04)
[2020-08-11] MEDS ORDERED: PT OWN MED DRAWER 7, Y5N ONE (09:05)
[2020-08-11] MEDS: ENOXAPARIN NA (PORCINE) 40 MG/0.4 ML DISP.SYRIN SQ SCH (09:20)
[2020-08-11] MEDS: ASPIRIN 81 MG CHEWABLE TABLETS PO SCH (09:21)
[2020-08-11] MEDS: MEMANTINE HCL 10 MG TABLET (FP) PO SCH (09:21)
[2020-08-11] MEDS: predniSONE 20 MG TABLET (UD) PO SCH (09:21)
[2020-08-11] MEDS: CEFTRIAXONE 1 GM in DEXTROSE 5%-WATER - 50 ML IVPB SCH (09:21)
[2020-08-11] MEDS: LACTULOSE 20 GM/30 ML UDC (FOR ORAL USE ONLY) PO SCH (09:21)
[2020-08-11] MEDS: LORATADINE 10 MG TABLET PO SCH (09:21)
[2020-08-11] MEDS: GABAPENTIN 100 MG CAPSULE PO SCH (09:22)
[2020-08-11] MEDS: CYPROHEPTADINE HCL 4 MG TABLET PO SCH (09:22)
[2020-08-11] MEDS: VALSARTAN 40 MG TABLET PO SCH (09:23)
[2020-08-11] MEDS: FLUTICASONE/SALMETEROL 100 MCG/50 MCG DISKUS IH SCH ×2 (09:23→22:07)
--- NOTE | 2020-08-11 09:44 | PN ---
Progress Note (short form) - Note Progress Note: reports she is feeling better still coughing but less Vital Signs Period Temp Pulse Resp BP Sys/Rodríguez Pulse Ox Last 24 Hr 97.4 F-98.7 F 66-82 18-20 115-140/64-75 97-98 cor-rrr lungs decreased bs at bases abd soft,nt ext no edema CBC, BMP 08/11/20 07:20 08/11/20 07:20 Microbiology 08/09/20 09:30 Blood - Peripheral Venous Blood Culture - Preliminary NO GROWTH OBTAINED AFTER 24 HOURS, INCUBATION TO CONTINUE FOR 4 DAYS. 08/09/20 09:20 Blood - Peripheral Venous Blood Culture - Preliminary NO GROWTH OBTAINED AFTER 24 HOURS, INCUBATION TO CONTINUE FOR 4 DAYS. 08/10/20 00:01 Sputum - Expectorated Gram Stain - Final 08/10/20 00:01 Sputum - Expectorated Sputum Culture - Preliminary Non Lactose Fermenting Gnb 08/10/20 00:01 Urine - Urine Clean Catch Legionella Antigen - Final 08/10/20 00:01 Urine - Urine Clean Catch Streptococcus pneumoniae Antigen (M - Final chest ct pending- fibrosis?- nothing to suggest PCP a/p cap sarcoid with chronic lung disease home oxygen await covid results continue rocephin can d/c zithromax-legionella antigen negative
[2020-08-11] MEDS ORDERED: predniSONE 10 MG TABLET (UD) PO SCH (10:00)
--- NOTE | 2020-08-11 11:30 | PN ---
Progress Note (short form) - Note Progress Note: PULMONARY Coughing up thick purulent, green sputum. No fevers. CT chest not read but reviewed, extensive fibrotic changes but no obvious infiltrate. Vital Signs Period Temp Pulse Resp BP Sys/Rodríguez Pulse Ox Last 24 Hr 97.4 F-98.7 F 66-82 18-20 115-140/64-75 97-98 Gen: NAD at rest Heart: RRR Lung: distant breath sounds Abd: soft, nontender Ext: no edema CBC, BMP 08/11/20 07:20 08/11/20 07:20 Active Medications Albuterol Sulfate (Ventolin Hfa Inhaler -) 2 puff IH Q4H PRN PRN Reason: SHORT OF BREATH/WHEEZING Last Admin: 08/11/20 09:28 Dose: 2 puff Documented by: Aspirin (Asa -) 81 mg PO DAILY [facility] Last Admin: 08/11/20 09:21 Dose: 81 mg Documented by: Atorvastatin Calcium (Lipitor -) 10 mg PO HS [facility] Last Admin: 08/10/20 22:15 Dose: 10 mg Documented by: Cyproheptadine HCl (Periactin -) 4 mg PO DAILY [facility] Last Admin: 08/11/20 09:22 Dose: 4 mg Documented by: Enoxaparin Sodium (Lovenox -) 40 mg SQ DAILY [facility] Last Admin: 08/11/20 09:20 Dose: 40 mg Documented by: Gabapentin (Neurontin -) 200 mg PO DAILY [facility] Last Admin: 08/11/20 09:22 Dose: 200 mg Documented by: Ceftriaxone Sodium 1 gm/ (Dextrose) 50 mls @ 100 mls/hr IVPB DAILY [facility] Last Admin: 08/11/20 09:21 Dose: 100 mls/hr Documented by: Azithromycin 250 mg/ Dextrose 250 mls @ 250 mls/hr IVPB DAILY [facility] Last Admin: 08/10/20 10:41 Dose: 250 mls/hr Documented by: Lactulose (Cephulac (Oral Use)) 10 gm PO DAILY [facility] Last Admin: 08/11/20 09:21 Dose: 10 gm Documented by: Loratadine (Claritin -) 10 mg PO DAILY [facility] Last Admin: 08/11/20 09:21 Dose: 10 mg Documented by: Memantine (Namenda -) 20 mg PO DAILY [facility] Last Admin: 08/11/20 09:21 Dose: 20 mg Documented by: Prednisone (Deltasone -) 20 mg PO DAILY [facility] Last Admin: 08/11/20 09:21 Dose: 20 mg Documented by: Fluticasone/Salmeterol (Advair 100mcg/50mcg -) 1 puff IH BID [facility] Last Admin: 08/11/20 09:23 Dose: 1 puff Documented by: Valsartan (Diovan -) 40 mg PO DAILY [facility] Last Admin: 08/11/20 09:23 Dose: 40 mg Documented by: A/P Acute on Chronic Hypoxic Respiratory Failure Acute Bronchitis Advanced Sarcoidosis HTN Hyperilpidemia h/o CVA - f/u official read of CT chest - continue antibiotics - f/u cultures, serologies - O2 to keep SpO2 >90% - continue prednisone - inhaled bronchodilators - DVT prophylaxis
[2020-08-11] MEDS: AZITHROMYCIN IVPB 250 MG in DEXTROSE 5%-WATER - 250 ML IVPB SCH (12:37)
--- NOTE | 2020-08-11 14:06 | PN ---
Physical Exam: SUBJECTIVE: Patient seen and examined OBJECTIVE: Vital Signs Period Temp Pulse Resp BP Sys/Rodríguez Pulse Ox Last 24 Hr 97.4 F-98.7 F 66-82 18-20 120-140/64-75 97-98 GENERAL: Awake, alert, and fully oriented, in no acute distress. HEAD: Normal with no signs of trauma. EYES: Pupils equal, round and reactive to light, sclera anicteric, conjunctiva clear. LUNGS: Breath sounds equal, clear to auscultation bilaterally. No wheezes, and no crackles posterior, anterior inspiratory rales. No accessory muscle use. HEART: Regular rate and rhythm, normal S1 and S2 ABDOMEN: Soft, nontender, not distended LOWER EXTREMITIES: 2+ pulses, warm, well-perfused. No calf tenderness. No peripheral edema. NEUROLOGICAL: Cranial nerves II-XII intact. Normal speech. Laboratory Results - last 24 hr 08/11/20 08/11/20 08/11/20 07:20 07:20 07:20 WBC 12.1 H RBC 4.70 Hgb 12.0 Hct 38.0 MCV 80.9 MCH 25.5 L MCHC 31.5 L RDW 13.6 Plt Count 325 MPV 8.0 Absolute Neuts (auto) 7.9 Neutrophils % 65.4 Lymphocytes % 16.4 Monocytes % 11.3 H D Eosinophils % 6.4 H D Basophils % 0.5 D Nucleated RBC % 0 ESR D-Dimer Sodium 140 Potassium 4.1 Chloride 107 Carbon Dioxide 26 Anion Gap 7 L BUN 15.6 Creatinine 0.6 Est GFR (CKD-EPI)AfAm 99.07 Est GFR (CKD-EPI)NonAf 85.48 Random Glucose 91 Calcium 8.8 Phosphorus 3.8 Magnesium 2.0 Ferritin 87.1 LD Total 248 H C-Reactive Protein 2.5 H 08/11/20 08/11/20 07:20 07:20 WBC RBC Hgb Hct MCV MCH MCHC RDW Plt Count MPV Absolute Neuts (auto) Neutrophils % Lymphocytes % Monocytes % Eosinophils % Basophils % Nucleated RBC % ESR 76 H D-Dimer 1827 H Sodium Potassium Chloride Carbon Dioxide Anion Gap BUN Creatinine Est GFR (CKD-EPI)AfAm Est GFR (CKD-EPI)NonAf Random Glucose Calcium Phosphorus Magnesium Ferritin LD Total C-Reactive Protein Active Medications Generic Name Dose Route Start Last Admin Trade Name Freq PRN Reason Stop Dose Admin Albuterol Sulfate 2 puff 08/09/20 23:35 08/11/20 09:28 Ventolin Hfa Inhaler - IH 2 puff Q4H PRN Administration SHORT OF BREATH/WHEEZING Aspirin 81 mg 08/10/20 10:00 08/11/20 09:21 Asa - PO 81 mg DAILY NEVA Administration Atorvastatin Calcium 10 mg 08/10/20 22:00 08/10/20 22:15 Lipitor - PO 10 mg HS NEVA Administration Cyproheptadine HCl 4 mg 08/11/20 10:00 08/11/20 09:22 Periactin - PO 4 mg DAILY NEVA Administration Enoxaparin Sodium 40 mg 08/10/20 10:00 08/11/20 09:20 Lovenox - SQ 40 mg DAILY NEVA Administration Gabapentin 200 mg 08/10/20 10:00 08/11/20 09:22 Neurontin - PO 200 mg DAILY NEVA Administration Ceftriaxone Sodium 1 gm/ 50 mls @ 100 mls/hr 08/10/20 10:00 08/11/20 09:21 Dextrose IVPB 100 mls/hr DAILY NEVA Administration Azithromycin 250 mg/ Dextrose 250 mls @ 250 mls/hr 08/10/20 10:00 08/11/20 12:37 IVPB 250 mls/hr DAILY NEVA Administration Lactulose 10 gm 08/10/20 11:00 08/11/20 09:21 Cephulac (Oral Use) PO 10 gm DAILY NEVA Administration Loratadine 10 mg 08/10/20 10:00 08/11/20 09:21 Claritin - PO 10 mg DAILY NEVA Administration Memantine 20 mg 08/10/20 11:00 08/11/20 09:21 Namenda - PO 20 mg DAILY NEVA Administration Prednisone 20 mg 08/10/20 11:00 08/11/20 09:21 Deltasone - PO 20 mg DAILY NEVA Administration Fluticasone/Salmeterol 1 puff 08/10/20 22:00 08/11/20 09:23 Advair 100mcg/50mcg - IH 1 puff BID NEVA Administration Valsartan 40 mg 08/10/20 10:00 08/11/20 09:23 Diovan - PO 40 mg DAILY NEVA Administration ASSESSMENT/PLAN: 80F w mhx of sarcoidosis (non compliant with meds), htn, and previous CVA(4 years ago) brought into the ED by her daughter for a 2 day complaint of shortness of breath and productive cough for few days. # Sepsis due to Community Acquired Pneumonia - resolved - CXR showed evidence of diffuse pulmonary fibrosis (reticulo-interstitial), with calcifications - inflammatory markers trending down - negative legionella - CT showing extensive reticuloendothelial disease, bronchiectesis, final read pending - on home O2 but not using constantly. - c/w home dose of prednisone - c/w Ceftriaxone and Azithro - pending COVID - PT - ID consult appreciated - pulmonary consult appreciated - case discussed with consults - possible dc planning in AM sarcoidosis ILD HTN h/o CVA DVT prophylaxis Visit type - Emergency Visit Emergency Visit: Yes ED Registration Date: 08/09/20 Care time: The patient presented to the Emergency Department on the above date and was hospitalized for further evaluation of their emergent condition. - New Patient This patient is new to me today: No - Critical Care Critical Care patient: No - Discharge Referral Referred to [facility] Med [facility] No - Medication Review Med list reviewed for High Risk Meds patients 65 and older: Yes (yes)
[2020-08-11] MEDS: ATORVASTATIN CA 10 MG TABLET (FP) PO SCH (22:08)
--- NOTE | 2020-08-12 08:13 | PN ---
Progress Note, Physician History of Present Illness: PULMONARY ALERT,OOB-CHAIR,FEELING BETTER,LESS DYSPNEIC + COUGH - Current Medication List Current Medications: Active Medications Albuterol Sulfate (Ventolin Hfa Inhaler -) 2 puff IH Q4H PRN PRN Reason: SHORT OF BREATH/WHEEZING Last Admin: 08/11/20 09:28 Dose: 2 puff Documented by: Aspirin (Asa -) 81 mg PO DAILY [facility] Last Admin: 08/11/20 09:21 Dose: 81 mg Documented by: Atorvastatin Calcium (Lipitor -) 10 mg PO HS [facility] Last Admin: 08/11/20 22:08 Dose: 10 mg Documented by: Cyproheptadine HCl (Periactin -) 4 mg PO DAILY [facility] Last Admin: 08/11/20 09:22 Dose: 4 mg Documented by: Enoxaparin Sodium (Lovenox -) 40 mg SQ DAILY [facility] Last Admin: 08/11/20 09:20 Dose: 40 mg Documented by: Gabapentin (Neurontin -) 200 mg PO DAILY [facility] Last Admin: 08/11/20 09:22 Dose: 200 mg Documented by: Ceftriaxone Sodium 1 gm/ (Dextrose) 50 mls @ 100 mls/hr IVPB DAILY [facility] Last Admin: 08/11/20 09:21 Dose: 100 mls/hr Documented by: Azithromycin 250 mg/ Dextrose 250 mls @ 250 mls/hr IVPB DAILY [facility] Last Admin: 08/11/20 12:37 Dose: 250 mls/hr Documented by: Lactulose (Cephulac (Oral Use)) 10 gm PO DAILY [facility] Last Admin: 08/11/20 09:21 Dose: 10 gm Documented by: Loratadine (Claritin -) 10 mg PO DAILY [facility] Last Admin: 08/11/20 09:21 Dose: 10 mg Documented by: Memantine (Namenda -) 20 mg PO DAILY [facility] Last Admin: 08/11/20 09:21 Dose: 20 mg Documented by: Prednisone (Deltasone -) 20 mg PO DAILY [facility] Last Admin: 08/11/20 09:21 Dose: 20 mg Documented by: Fluticasone/Salmeterol (Advair 100mcg/50mcg -) 1 puff IH BID [facility] Last Admin: 08/11/20 22:07 Dose: 1 puff Documented by: Valsartan (Diovan -) 40 mg PO DAILY [facility] Last Admin: 08/11/20 09:23 Dose: 40 mg Documented by: - Objective Vital Signs: Vital Signs Temperature 98.6 F 08/12/20 06:00 Pulse Rate 68 08/12/20 06:00 Respiratory Rate 20 08/12/20 06:00 Blood Pressure 125/69 08/12/20 06:00 O2 Sat by Pulse Oximetry (%) 96 08/12/20 06:00 Constitutional: Yes: Calm, Thin Eyes: Yes: WNL HENT: Yes: WNL Neck: Yes: WNL Cardiovascular: Yes: Regular Rate and Rhythm, S1, S2 Respiratory: Yes: Rales (BILATERAL CRACKLES) Gastrointestinal: Yes: Normal Bowel Sounds Extremities: Yes: WNL Edema: No Labs: CBC, BMP 08/11/20 07:20 Problem List - Problems (1) Sarcoid Code(s): D86.9 - SARCOIDOSIS, UNSPECIFIED (2) Shortness of breath at rest Code(s): R06.02 - SHORTNESS OF BREATH (3) Chronic hypoxemic respiratory failure Code(s): J96.11 - CHRONIC RESPIRATORY FAILURE WITH HYPOXIA (4) HTN (hypertension) Code(s): I10 - ESSENTIAL (PRIMARY) HYPERTENSION Assessment/Plan A/P Acute on Chronic Hypoxic Respiratory Failure improving Acute Bronchitis Advanced Sarcoidosis with fibrosis HTN Hyperilpidemia h/o CVA - continue antibiotics - O2 to keep SpO2 >90% - continue prednisone - inhaled bronchodilators - DVT prophylaxis DR BANERJEE
--- NOTE | 2020-08-12 09:34 | PN ---
Progress Note (short form) - Note Progress Note: reports she is feeling better intermittent cough with productive sputum but less eating well Vital Signs Period Temp Pulse Resp BP Sys/Rodríguez Pulse Ox Last 24 Hr 98.6 F-99.1 F 68-88 18-20 117-125/58-78 96-98 cor-rrr lungs crackles left base abd soft,nt ext no edema CBC, BMP 08/11/20 07:20 08/11/20 07:20 Microbiology 08/09/20 09:30 Blood - Peripheral Venous Blood Culture - Preliminary NO GROWTH OBTAINED AFTER 48 HOURS, INCUBATION TO CONTINUE FOR 3 DAYS. 08/09/20 09:20 Blood - Peripheral Venous Blood Culture - Preliminary NO GROWTH OBTAINED AFTER 48 HOURS, INCUBATION TO CONTINUE FOR 3 DAYS. 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
[2020-08-12] MEDS ORDERED: PT OWN MED DRAWER 7, Y5N ONE (09:51)
[2020-08-12] MEDS ORDERED: cefTRIAXone SODIUM 1 GM VIAL ONE (09:51)
[2020-08-12] MEDS ORDERED: DEXTROSE 5%-WATER - 50 ML IVPB ONE (09:51)
[2020-08-12] MEDS: LORATADINE 10 MG TABLET PO SCH (09:55)
[2020-08-12] MEDS: predniSONE 20 MG TABLET (UD) PO SCH (09:55)
[2020-08-12] MEDS: ASPIRIN 81 MG CHEWABLE TABLETS PO SCH (09:55)
[2020-08-12] MEDS: CEFTRIAXONE 1 GM in DEXTROSE 5%-WATER - 50 ML IVPB SCH (09:55)
[2020-08-12] MEDS: ENOXAPARIN NA (PORCINE) 40 MG/0.4 ML DISP.SYRIN SQ SCH (09:56)
[2020-08-12] MEDS: MEMANTINE HCL 10 MG TABLET (FP) PO SCH (09:56)
[2020-08-12] MEDS: LACTULOSE 20 GM/30 ML UDC (FOR ORAL USE ONLY) PO SCH (09:56)
[2020-08-12] MEDS: FLUTICASONE/SALMETEROL 100 MCG/50 MCG DISKUS IH SCH (09:57)
[2020-08-12] MEDS: VALSARTAN 40 MG TABLET PO SCH (09:57)
[2020-08-12] MEDS: CYPROHEPTADINE HCL 4 MG TABLET PO SCH (09:58)
[2020-08-12] MEDS: GABAPENTIN 100 MG CAPSULE PO SCH (09:58)
[2020-08-12] MEDS: ALBUTEROL SO4 HFA INHALER IH PRN (09:58)
--- NOTE | 2020-08-12 12:05 | DS ---
Physical Exam: SUBJECTIVE: Patient seen and examined at bedside this morning. Patient reports feeling better, less SOB and cough. OBJECTIVE: Vital Signs Temperature 98.6 F 08/12/20 10:00 Pulse Rate 78 08/12/20 10:00 Respiratory Rate 18 08/12/20 10:00 Blood Pressure 117/68 08/12/20 10:00 O2 Sat by Pulse Oximetry (%) 96 08/12/20 10:00 PHYSICAL EXAM GENERAL: The patient is awake, alert, and fully oriented, on 2L NC HEAD: Normal with no signs of trauma. EYES: PERRLA, EOMI, sclera anicteric, conjunctiva clear. ENT: dry mucous membranes. NECK: supple. LUNGS: Decreases breath sounds on bilateral bases HEART: Regular rate and rhythm, S1, S2 ABDOMEN: Soft, nontender, nondistended, normoactive bowel sounds EXTREMITIES: 2+ pulses, warm, well-perfused, no edema. NEUROLOGICAL: Cranial nerves II through XII grossly intact. Normal speech PSYCH: Normal mood, normal affect. SKIN: Warm, dry, normal turgor HOSPITAL COURSE: Date of Admission:08/09/20 Date of Discharge: 08/12/20 Patient is an 80 year old female with past medical history of sarcoidosis, htn, and previous CVA(4 years ago) brought into the ED by her daughter for a 2 day complaint of shortness of breath and productive cough for few days. CXR showed evidence of diffuse pulmonary fibrosis (reticulo-interstitial), with calcifications. Chest CT revealed marked bilateral interstitial thickening and cystic changes/honeycombin compatible with sequelae of sarcoidosis. Patient was started on IV Ceftriaxone and Azithromycin. Legionella was negative, sputum culture grew Pseudomonas. Patient continued to improve throughout hospital stay and discharged with PO levaquin and instructions to follow up with PCP and corrections unit supervisor. Minutes to complete discharge: 38 Discharge Summary Problems reviewed: Yes Reason For Visit: SHORTNESS OF BREATH AT REST Current Active Problems Chronic hypoxemic respiratory failure (Acute) HTN (hypertension) (Acute) Sarcoid (Acute) Shortness of breath at rest (Acute) Condition: Improved - Instructions Diet, Activity, Other Instructions: Your visit You were admitted to the hospital because you had shortness of breath and cough. You were treated with antibiotics to cover for pneumonia and you started feeling better. Please continue taking the antibiotic as prescribed below. Your COVID test is still pending. Please keep yourself isolated. Additional instructions are provided in the packet. We will give you a call as soon as the results are back. Medications Please take the following medication as prescribed below: 1. Levaquin 500mg once a day for 5 days. 2. Advair inhaler, 1 puff twice a day. Please continue taking your other home medications. Follow up Please follow up with your primary care provider in 1 week. If you need one, we have provided you a referral to follow up at the [facility]. You may call [phone] to make an appointment with Dr. Reardon. Please follow up with the corrections unit supervisor (Dr. Astudillo) in 1-2 weeks. A referral has been provided as well. Additional info Please call [phone] or go to the emergency room if with any worsening fevers, chills, headache, dizziness, chest pain, shortness of breath, belly pain, or any new concerns noted. Referrals: [facility] – [place] [facility] [place] [Provider Group] Bisi Michael MD [Staff Physician] - Isai Astudillo MD, MD [Staff Physician] - Disposition: VNS/HOME HEALTH CARE - Home Medications Comprehensive Discharge Medication List: Ambulatory Orders Albuterol 0.083% Nebulizer [place] [Ventolin 0.083% Nebulizer Soln -] 1 neb NEB QID 08/09/20 Aspirin 81 mg PO DAILY 08/09/20 Atorvastatin Ca [Lipitor] 10 mg PO HS 08/09/20 Cetirizine HCl [Allergy Relief] 10 mg PO DAILY 08/09/20 Cyproheptadine [Periactin -] 4 mg PO DAILY 08/09/20 Gabapentin 200 mg PO DAILY 08/09/20 Guaifenesin/Dextromethorphan [Mucinex Dm ER 1,200-60 mg Tab] 1 each PO DAILY 08/09/20 Lactulose 10 gm PO DAILY 08/09/20 Memantine HCl [Namenda -] 20 mg PO DAILY 08/09/20 Prednisone 20 mg PO DAILY 08/09/20 Valsartan 40 mg PO DAILY 08/09/20 Cefpodoxime Proxetil [Vantin -] 200 mg PO Q12H #14 tablet 08/12/20 Salmeterol/Fluticasone [Advair 100Mcg/50Mcg -] 1 puff IH BID #1 inhaler 08/12/20 This patient is new to me today: Yes Date on this admission: 08/12/20 Emergency Visit: Yes ED Registration Date: 08/09/20 Care time: The patient presented to the Emergency Department on the above date and was hospitalized for further evaluation of their emergent condition. Critical Care patient: No - Discharge Referral Referred to [facility] Med P.C.: No ATTENDING PHYSICIAN STATEMENT I saw and evaluated the patient. I reviewed the resident's note and discussed the case with the resident. I agree with the resident's findings and plan as documented. SUBJECTIVE: OBJECTIVE: ASSESSMENT AND PLAN:
--- NOTE | 2020-08-12 12:16 | PN ---
Teaching Attending Note Name of Resident: Hailee Marin ATTENDING PHYSICIAN STATEMENT I saw and evaluated the patient. I reviewed the resident's note and discussed the case with the resident. I agree with the resident's findings and plan as documented. SUBJECTIVE: pt seen and examined OBJECTIVE: Last Vital Signs Temp Pulse Resp BP Pulse Ox 98.6 F 78 18 117/68 96 08/12/20 10:00 08/12/20 10:00 08/12/20 10:00 08/12/20 10:00 08/12/20 10:00 GENERAL: Awake, alert, and fully oriented, in no acute distress. HEAD: Normal with no signs of trauma. EYES: Pupils equal, round and reactive to light, sclera anicteric, conjunctiva clear. LUNGS: Breath sounds equal, clear to auscultation bilaterally. No wheezes, and no crackles posterior, anterior inspiratory rales. No accessory muscle use. HEART: Regular rate and rhythm, normal S1 and S2 ABDOMEN: Soft, nontender, not distended LOWER EXTREMITIES: 2+ pulses, warm, well-perfused. No calf tenderness. No peripheral edema. NEUROLOGICAL: Cranial nerves II-XII intact. Normal speech. CBCD WBC 12.1 K/mm3 (4.0-10.0) H 08/11/20 07:20 RBC 4.70 M/mm3 (3.60-5.2) 08/11/20 07:20 Hgb 12.0 GM/dL (10.7-15.3) 08/11/20 07:20 Hct 38.0 % (32.4-45.2) 08/11/20 07:20 MCV 80.9 fl (80-96) 08/11/20 07:20 MCHC 31.5 g/dl (32.0-36.0) L 08/11/20 07:20 RDW 13.6 % (11.6-15.6) 08/11/20 07:20 Plt Count 325 K/MM3 (134-434) 08/11/20 07:20 MPV 8.0 fl (7.5-11.1) 08/11/20 07:20 CMP Sodium 140 mmol/L (136-145) 08/11/20 07:20 Potassium 4.1 mmol/L (3.5-5.1) 08/11/20 07:20 Chloride 107 mmol/L (98-107) 08/11/20 07:20 Carbon Dioxide 26 mmol/L (21-32) 08/11/20 07:20 Anion Gap 7 MMOL/L (8-16) L 08/11/20 07:20 BUN 15.6 mg/dL (7-18) 08/11/20 07:20 Creatinine 0.6 mg/dL (0.55-1.3) 08/11/20 07:20 Calcium 8.8 mg/dL (8.5-10.1) 08/11/20 07:20 Total Bilirubin 0.3 mg/dL (0.2-1) 08/10/20 07:15 AST 9 U/L (15-37) L 08/10/20 07:15 ALT 13 U/L (13-61) 08/10/20 07:15 Alkaline Phosphatase 85 U/L (45-117) 08/10/20 07:15 Total Protein 7.0 g/dl (6.4-8.2) 08/10/20 07:15 Albumin 2.6 g/dl (3.4-5.0) L 08/10/20 07:15 Active Medications Albuterol Sulfate (Ventolin Hfa Inhaler -) 2 puff IH Q4H PRN PRN Reason: SHORT OF BREATH/WHEEZING Last Admin: 08/12/20 09:58 Dose: 2 puff Documented by: Aspirin (Asa -) 81 mg PO DAILY [facility] Last Admin: 08/12/20 09:55 Dose: 81 mg Documented by: Atorvastatin Calcium (Lipitor -) 10 mg PO [facility] Last Admin: 08/11/20 22:08 Dose: 10 mg Documented by: Cyproheptadine HCl (Periactin -) 4 mg PO DAILY [facility] Last Admin: 08/12/20 09:58 Dose: 4 mg Documented by: Enoxaparin Sodium (Lovenox -) 40 mg SQ DAILY [facility] Last Admin: 08/12/20 09:56 Dose: 40 mg Documented by: Gabapentin (Neurontin -) 200 mg PO DAILY [facility] Last Admin: 08/12/20 09:58 Dose: 200 mg Documented by: Ceftriaxone Sodium 1 gm/ (Dextrose) 50 mls @ 100 mls/hr IVPB DAILY [facility] Last Admin: 08/12/20 09:55 Dose: 100 mls/hr Documented by: Lactulose (Cephulac (Oral Use)) 10 gm PO DAILY [facility] Last Admin: 08/12/20 09:56 Dose: 10 gm Documented by: Loratadine (Claritin -) 10 mg PO DAILY [facility] Last Admin: 08/12/20 09:55 Dose: 10 mg Documented by: Memantine (Namenda -) 20 mg PO DAILY [facility] Last Admin: 08/12/20 09:56 Dose: 20 mg Documented by: Prednisone (Deltasone -) 20 mg PO DAILY [facility] Last Admin: 08/12/20 09:55 Dose: 20 mg Documented by: Fluticasone/Salmeterol (Advair 100mcg/50mcg -) 1 puff IH BID [facility] Last Admin: 08/12/20 09:57 Dose: 1 puff Documented by: Valsartan (Diovan -) 40 mg PO DAILY [facility] Last Admin: 08/12/20 09:57 Dose: 40 mg Documented by: ASSESSMENT AND PLAN: 80F w mhx of sarcoidosis (non compliant with meds), htn, and previous CVA(4 years ago) brought into the ED by her daughter for a 2 day complaint of shortness of breath and productive cough for few days. # Sepsis due to Community Acquired Pneumonia - resolved - CXR showed evidence of diffuse pulmonary fibrosis (reticulo-interstitial), with calcifications - inflammatory markers trending down - negative legionella - CT showing extensive reticuloendothelial disease, bronchiectesis, final read pending - on home O2 but not using constantly. - c/w home dose of prednisone - on ceftriaxone - pending COVID - PT - ID consult appreciated - pulmonary consult appreciated - case discussed with consults sarcoidosis ILD HTN h/o CVA DVT prophylaxis
[2020-08-12 14:03] VITALS: BP 118/65; PULSE 91; TEMP 98.1
== END 2020-08-12 15:21 | disposition home health service (06) | DRG 871 ==
LOC: JER 16:00 → JERBED 18:57 → J8W 21:34
PROVIDERS: ADMIT Internal Medicine; ATTEND Student in an Organized Health Care Education/Training Program
DX: A41.89 Other specified sepsis (principal); J18.9 Pneumonia, unspecified organism; J96.21 Acute and chronic respiratory failure with hypoxia; D86.9 Sarcoidosis, unspecified; I10 Essential (primary) hypertension; J84.10 Pulmonary fibrosis, unspecified; J20.8 Acute bronchitis due to other specified organisms; J47.9 Bronchiectasis, uncomplicated; E78.5 Hyperlipidemia, unspecified; Z86.73 Personal history of transient ischemic attack (TIA), and cerebral infarction without residual deficits
CPT/HCPCS: 36415; 71046-TC-FY; 71260-TC; 80048; 80053; 82550; 82728; 83615; 83735; 83880; 84100; 84484; 85025; 85379; 85610; 85651; 86140; 87040; 87070; 87186; 87205; 87449; 87899; 93005; 93010; 97116-GP; 97161-GP; 99285-25; J1100; Q9967; U0003